=== PATIENT | male | born 1975 | race Caucasian/White ===

== ENCOUNTER 2018-02-06 14:25 | Emergency (ER) | payer OTHER ==
[2018-02-06] MEDS ORDERED: Sodium Chloride 0.9% 1,000 ML IV ONE (14:37)
--- NOTE | 2018-02-06 14:50 | EDM.PDOC ---
ED HPI GENERAL MEDICAL PROBLEM - General Chief Complaint: Abdominal Pain Stated Complaint: ABD PAIN Time Seen by Provider: 02/06/18 14:35 Source of Information: Reports: Patient History Limitations: Reports: No Limitations - History of Present Illness INITIAL COMMENTS - FREE TEXT/NARRATIVE: HISTORY AND PHYSICAL: History of present illness: Patient is a 42-year-old male who presents to the emergency room today with complaints of abdominal pain and right-sided chest wall pain. He states that this pain is intermittent and last a few seconds. Describes the pain as a sharp stabbing pain, "like a lightening jolt" to the right chest wall and right lower quadrant simultaneously. This pain is not associated with eating, drinking or physical activity. He denies any fever, chills, shortness of breath, diaphoresis or headache. Denies any nausea, vomiting, diarrhea or constipation. He does state he drinks alcohol daily. Review of systems: As per history of present illness and below otherwise all systems reviewed and negative. Past medical history: As per history of present illness and as reviewed below otherwise noncontributory. Surgical history: As per history of present illness and as reviewed below otherwise noncontributory. Social history: No reported history of drug or alcohol abuse. Family history: As per history of present illness and as reviewed below otherwise noncontributory. Physical exam: General: Well-developed and well-nourished 42-year-old male. Alert and oriented. Nontoxic appearing and in no acute distress. HEENT: Atraumatic, normocephalic, pupils equal and reactive bilaterally, negative for conjunctival pallor or scleral icterus, mucous membranes moist, throat clear, neck supple, nontender, trachea midline. No drooling or trismus noted. No meningeal signs Lungs: Clear to auscultation, breath sounds equal bilaterally, chest nontender. Heart: S1S2, regular rate and rhythm without overt murmur Abdomen: Soft, nondistended, nontender. Negative for masses or hepatosplenomegaly. Negative for costovertebral tenderness. Pelvis: Stable nontender. Genitourinary: Deferred. Rectal: Deferred. Skin: Intact, warm, dry. No lesions or rashes noted. Extremities: Atraumatic, moves all extremities per self without difficulty or deficits, negative for cords or calf pain. Neurovascular unremarkable. Neuro: Awake, alert, oriented. Cranial nerves II through XII unremarkable. Cerebellum unremarkable. Motor and sensory unremarkable throughout. Exam nonfocal. Notes: All lab work is unremarkable. The chest x-ray and CT of the abdomen and pelvis show no acute findings. Incidental finding of small nonobstructive renal colliculi, bilateral. Did offer the patient some pain medication which she declines. We reviewed signs and symptoms that would prompt him to come back to the emergency room. [facility] Denies any further questions. Diagnostics: CBC, CMP, amylase, lipase, UA, troponin, EKG, chest x-ray Therapeutics: [] Impression: Abdominal Pain Plan: 1. Today's lab work, x-ray, EKG and CT of the abdomen and pelvis are within normal limits. 2. Tylenol and/or ibuprofen as needed for pain management. 3. Please follow-up with your primary caregiver in the next 1-2 days. Return to the ED as needed and as discussed. Definitive disposition and diagnosis as appropriate pending reevaluation and review of above. Duration: Week(s): - Related Data Allergies Allergy/AdvReac Type Severity Reaction Status Date / Time No Known Allergies Allergy Verified 02/06/18 14:36 Home Meds: Home Meds Testosterone 0.5 ml SUBCUT WEEKLY 02/06/18 [History] Past Medical History Respiratory History: Reports: Asthma - Infectious Disease History Infectious Disease History: Reports: Chicken Pox - Past Surgical History Musculoskeletal Surgical History: Reports: Other (See Below) Other Musculoskeletal Surgeries/Procedures:: ACL repair left knee. Social & Family History - Family History Family Medical History: Noncontributory - Tobacco Use Smoking Status *Q: Never Smoker - Alcohol Use Days Per Week of Alcohol Use: 7 Number of Drinks Per Day: 2 Total Drinks Per Week: 14 - Recreational Drug Use Recreational Drug Use: No ED ROS GENERAL - Review of Systems Review Of Systems: ROS reveals no pertinent complaints other than HPI. ED EXAM, GI/ABD - Physical Exam Exam: See Below (See dictation) Course - Vital Signs Last Recorded V/S: Last Vital Signs Temp 97.4 F 02/06/18 14:37 Pulse 84 02/06/18 16:25 Resp 18 02/06/18 16:25 BP 143/84 H 02/06/18 16:25 Pulse Ox 99 02/06/18 16:25 - Orders/Labs/Meds Orders: Active Orders 24 hr Category Date Time Status EKG Documentation Completion [RC] STAT Care 02/06/18 14:37 Active Abdomen Pelvis w Cont [CT] Stat Exams 02/06/18 14:45 Taken Chest 1V Frontal [CR] Stat Exams 02/06/18 14:47 Taken UA W/MICROSCOPIC [URIN] Stat Lab 02/06/18 16:15 Ordered Labs: Laboratory Tests 02/06/18 02/06/18 02/06/18 Range/Units 14:47 14:47 14:47 WBC 6.99 (4.0-11.0) K/uL RBC 4.89 (4.50-5.90) M/uL Hgb 15.0 (13.0-17.0) g/dL Hct 43.7 (38.0-50.0) % MCV 89.4 (80.0-98.0) fL MCH 30.7 (27.0-32.0) pg MCHC 34.3 (31.0-37.0) g/dL RDW Std Deviation 45.7 (28.0-62.0) fl RDW Coeff of [place] 14 (11.0-15.0) % Plt Count 221 (150-400) K/uL MPV 9.50 (7.40-12.00) fL Neut % (Auto) 62.8 (48.0-80.0) % Lymph % (Auto) 25.9 (16.0-40.0) % [place] % (Auto) 10.4 (0.0-15.0) % Eos % (Auto) 0.6 (0.0-7.0) % Baso % (Auto) 0.3 (0.0-1.5) % Neut # (Auto) 4.4 (1.4-5.7) K/uL Lymph # (Auto) 1.8 (0.6-2.4) K/uL [place] # (Auto) 0.7 (0.0-0.8) K/uL Eos # (Auto) 0.0 (0.0-0.7) K/uL Baso # (Auto) 0.0 (0.0-0.1) K/uL Nucleated RBC % 0.0 /100WBC Nucleated RBCs # 0 K/uL Sodium 140 (136-148) mmol/L Potassium 3.5 (3.5-5.1) mmol/L Chloride 104 (98-107) mmol/L Carbon Dioxide 27.1 (21.0-32.0) mmol/L BUN 12 (7.0-18.0) mg/dL Creatinine 1.1 (0.8-1.3) mg/dL Est Cr Clr Drug Dosing 83.46 mL/min Estimated GFR (MDRD) > 60.0 ml/min Glucose 148 H (74-106) mg/dL Calcium 8.8 (8.5-10.1) mg/dL Total Bilirubin 0.5 (0.2-1.0) mg/dL AST 18 (15-37) IU/L ALT 47 (14-63) IU/L Alkaline Phosphatase 66 (46-116) U/L Troponin I < 0.050 (0.000-0.056) ng/mL Total Protein 7.6 (6.4-8.2) g/dL Albumin 3.9 (3.4-5.0) g/dL Globulin 3.7 H (2.0-3.5) g/dL Albumin/Globulin Ratio 1.1 L (1.3-2.8) Amylase 57 (25-115) U/L Lipase 106 (73-393) U/L Urine Color Urine Appearance Urine pH (5.0-8.0) Ur Specific [place] (1.001-1.035) Urine Protein (NEGATIVE) mg/dL Urine Glucose (UA) (NEGATIVE) mg/dL Urine Ketones (NEGATIVE) mg/dL Urine Occult Blood (NEGATIVE) Urine Nitrite (NEGATIVE) Urine Bilirubin (NEGATIVE) Urine Urobilinogen (<2.0) EU/dL Ur Leukocyte Esterase (NEGATIVE) Urine RBC (0-2/HPF) Urine WBC (0-5/HPF) Ur Epithelial Cells (NONE-FEW) Urine Bacteria (NEGATIVE) H. pylori IgG Antibody (NEG) 02/06/18 02/06/18 Range/Units 14:47 16:15 WBC (4.0-11.0) K/uL RBC (4.50-5.90) M/uL Hgb (13.0-17.0) g/dL Hct (38.0-50.0) % MCV (80.0-98.0) fL MCH (27.0-32.0) pg MCHC (31.0-37.0) g/dL RDW Std Deviation (28.0-62.0) fl RDW Coeff of [place] (11.0-15.0) % Plt Count (150-400) K/uL MPV (7.40-12.00) fL Neut % (Auto) (48.0-80.0) % Lymph % (Auto) (16.0-40.0) % [place] % (Auto) (0.0-15.0) % Eos % (Auto) (0.0-7.0) % Baso % (Auto) (0.0-1.5) % Neut # (Auto) (1.4-5.7) K/uL Lymph # (Auto) (0.6-2.4) K/uL [place] # (Auto) (0.0-0.8) K/uL Eos # (Auto) (0.0-0.7) K/uL Baso # (Auto) (0.0-0.1) K/uL Nucleated RBC % /100WBC Nucleated RBCs # K/uL Sodium (136-148) mmol/L Potassium (3.5-5.1) mmol/L Chloride (98-107) mmol/L Carbon Dioxide (21.0-32.0) mmol/L BUN (7.0-18.0) mg/dL Creatinine (0.8-1.3) mg/dL Est Cr Clr Drug Dosing mL/min Estimated GFR (MDRD) ml/min Glucose (74-106) mg/dL Calcium (8.5-10.1) mg/dL Total Bilirubin (0.2-1.0) mg/dL AST (15-37) IU/L ALT (14-63) IU/L Alkaline Phosphatase (46-116) U/L Troponin I (0.000-0.056) ng/mL Total Protein (6.4-8.2) g/dL Albumin (3.4-5.0) g/dL Globulin (2.0-3.5) g/dL Albumin/Globulin Ratio (1.3-2.8) Amylase (25-115) U/L Lipase (73-393) U/L Urine Color YELLOW Urine Appearance CLEAR Urine pH 7.0 (5.0-8.0) Ur Specific [place] 1.015 (1.001-1.035) Urine Protein NEGATIVE (NEGATIVE) mg/dL Urine Glucose (UA) NEGATIVE (NEGATIVE) mg/dL Urine Ketones NEGATIVE (NEGATIVE) mg/dL Urine Occult Blood NEGATIVE (NEGATIVE) Urine Nitrite NEGATIVE (NEGATIVE) Urine Bilirubin NEGATIVE (NEGATIVE) Urine Urobilinogen 0.2 (<2.0) EU/dL Ur Leukocyte Esterase NEGATIVE (NEGATIVE) Urine RBC 0-2 (0-2/HPF) Urine WBC 0-1 (0-5/HPF) Ur Epithelial Cells RARE (NONE-FEW) Urine Bacteria FEW (NEGATIVE) H. pylori IgG Antibody NEGATIVE (NEG) Meds: Medications Discontinued Medications Generic Name Dose Route Start Last Admin Trade Name Freq PRN Reason Stop Dose Admin Sodium Chloride 1,000 mls @ 999 mls/hr 02/06/18 14:37 02/06/18 15:09 Normal Saline IV 02/06/18 15:37 999 mls/hr STAT ONE Administration Iopamidol 100 ml 02/06/18 16:25 02/06/18 16:26 Isovue Multipack-370 (76%) IVPUSH 02/06/18 16:26 100 ml ONETIME STA Administration Departure - Departure Time of Disposition: 16:57 Disposition: Home, Self-Care 01 Clinical Impression: Abdominal pain Qualifiers: Abdominal location: right upper quadrant Qualified Code(s): R10.11 - Right upper quadrant pain - Discharge Information Instructions: Abdominal Pain, Adult Referrals: PCP,None [Primary Care Provider] - Forms: ED Department Discharge Additional Instructions: The following information is given to patients seen in the emergency department who are being discharged to home. This information is to outline your options for follow-up care. We provide all patients seen in our emergency department with a follow-up referral. The need for follow-up, as well as the timing and circumstances, are variable depending upon the specifics of your emergency department visit. If you don't have a primary care physician on staff, we will provide you with a referral. We always advise you to contact your personal physician following an emergency department visit to inform them of the circumstance of the visit and for follow-up with them and/or the need for any referrals to a consulting specialist. The emergency department will also refer you to a specialist when appropriate. This referral assures that you have the opportunity for follow-up care with a specialist. All of these measure are taken in an effort to provide you with optimal care, which includes your follow-up. Under all circumstances we always encourage you to contact your private physician who remains a resource for coordinating your care. When calling for follow-up care, please make the office aware that this follow-up is from your recent emergency room visit. If for any reason you are refused follow-up, please contact the [facility] Emergency Department at and asked to speak to the emergency department charge nurse. [facility] [address] [place] [id number] 1. Today's lab work, x-ray, EKG and CT of the abdomen and pelvis are within normal limits. 2. Tylenol and/or ibuprofen as needed for pain management. 3. Please follow-up with your primary caregiver in the next 1-2 days. Return to the ED as needed and as discussed. - My Orders Last 24 Hours: My Active Orders 02/06/18 14:37 EKG Documentation Completion [RC] STAT 02/06/18 14:45 Abdomen Pelvis w Cont [CT] Stat 02/06/18 14:47 Chest 1V Frontal [CR] Stat 02/06/18 16:15 UA W/MICROSCOPIC [URIN] Stat - Assessment/Plan Last 24 Hours: My Active Orders 02/06/18 14:37 EKG Documentation Completion [RC] STAT 02/06/18 14:45 Abdomen Pelvis w Cont [CT] Stat 02/06/18 14:47 Chest 1V Frontal [CR] Stat 02/06/18 16:15 UA W/MICROSCOPIC [URIN] Stat
[2018-02-06 15:36] LABS: CHLORIDE,CL 104 mmol/L (98-107); SODIUM,NA 140 mmol/L (136-148)
[2018-02-06] MEDS ORDERED: Iopamidol 755 MG/ML 500 ML Multipack Bottle IVPUSH STA (16:25)
--- NOTE | 2018-02-08 09:25 | CR ---
EXAM DATE: 02/06/18 PATIENT'S AGE: 42 Patient: ROSS PRIDE Facility: [place], [place] Site . Site : 1975 Study: XRay Chest [id number] 3:38:00 PM Ordering Physician: Doctor Keene Final Report: INDICATION: pain/sob INDICATION: Chest pain and shortness of breath. TECHNIQUE: Single view. FINDINGS: Heart size is within normal limits for portable technique. The lungs are free of infiltrate. There is no pulmonary edema. No pneumothorax is seen. IMPRESSION: Clear chest. Dictated by Didier Dukes MD @ 02/06/2018 3:54:59 PM Dictated by: Didier Dukes MD @ 02/06/2018 15:55:04 (Electronic Signature) Report Signed by Proxy. [facility]
--- NOTE | 2018-02-08 09:32 | CT ---
EXAM DATE: 02/06/18 PATIENT'S AGE: 42 Patient: ROSS PRIDE Facility: [place], [place] Site . Site : 1975 Study: CT Abdomen/Pelvis [id number]/2/2018 4:20:28 PM Ordering Physician: Doctor Keene Final Report: HISTORY: Right lower quadrant pain epigastric pain. TECHNIQUE: Contrast-enhanced CT abdomen pelvis without mL Isovue-300. Coronal sagittal reformatted images obtained. Comparison: No comparison studies are available. Findings: Heart size is normal. Basilar atelectasis. No effusion. No pericardial effusion. Small sub centimeter low-density lesion in the left lobe liver could represent a possible small hemangioma. Adrenal glands pancreas gallbladder appears unremarkable. No abdominal aortic aneurysm. Small fat containing umbilical hernia. Small nonobstructing renal calculi. No hydronephrosis. Normal appendix. Urine bladder is unremarkable Prostate gland is within normal limits. No suspicious bony lesions. IMPRESSION: No acute findings in abdomen pelvis. Normal appendix. Bilateral nonobstructing renal calculi. Please note that all CT scans at this facility use dose modulation, iterative reconstruction, and/or weight-based dosing when appropriate to reduce radiation dose to as low as reasonably achievable. Dictated by Linette Morrow MD @ Feb 06 2018 4:35PM (Electronic Signature) Report Signed by Proxy. [facility]
== END 2018-02-06 17:08 | disposition home or self-care (01) ==
LOC: MW.ED 14:25
DX: R10.11 Right upper quadrant pain (principal); R07.89 Other chest pain; J45.909 Unspecified asthma, uncomplicated
CPT/HCPCS: 36415; 71045; 74177; 80053; 81001; 82150; 83690; 84484; 85025; 86677; 93005; 96360; 99285; J7040; Q9967; 99284